=== PATIENT | male | born 1995 | race Caucasian/White ===

== ENCOUNTER 2019-09-10 13:27 | Emergency (ER) | payer BC ==
[~2019-09-10] VITALS: Ht 175.3 cm; Wt 83.9 kg
[2019-09-10 13:33] VITALS: Ht 175.3 cm; Wt 83.9 kg
[2019-09-10 16:10] VITALS: BP 126/78
== END 2019-09-10 16:10 | disposition home or self-care (01) ==
LOC: ED 13:27
DX: R21 Rash and other nonspecific skin eruption (principal); L29.9 Pruritus, unspecified; T36.0X5A Adverse effect of penicillins, initial encounter; T36.1X5A Adverse effect of cephalosporins and other beta-lactam antibiotics, initial encounter; Y92.89 Other specified places as the place of occurrence of the external cause
CPT/HCPCS: J0171; J1200; J2930; J3490